=== PATIENT | female | born 1955 | race Caucasian/White ===

== ENCOUNTER 2017-09-24 19:54 | Emergency (ER) | payer OTHER ==
[2017-09-24 20:22] VITALS: BP 135/58
[2017-09-24] MEDS ORDERED: Benzonatate CAP* 100 MG PO ONE (20:32)
[2017-09-24] MEDS ORDERED: Albuterol/Ipratropium NEB.SOL* Albuterol 2.5 MG/Ipratropium 0.5 MG 3 ML INH ONE (20:32)
--- NOTE | 2017-09-24 21:01 | RAD ---
INDICATION: Cough x1 week COMPARISON: Most recent comparison chest x-rays dated February 02, 2015 TECHNIQUE: PA and lateral views of the chest were obtained. FINDINGS: The heart and mediastinum are normal in size and contour. The lungs are grossly clear. There is no evidence of large pleural effusion. Visualized bones are normal for the patient's age. There is no radiographic evidence of free air beneath the diaphragm IMPRESSION: No radiographic evidence of acute cardiopulmonary disease.
[2017-09-24] MEDS ORDERED: Albuterol HFA INHALER* 8 gm MDI INH ONE (21:03)
--- NOTE | 2017-09-24 21:03 | UC ---
Respiratory Complaint HPI - HPI Summary HPI Summary: Patient presents to the with CC of SOB, chest congestion stating as a "burning" sensation. Denies fevers or sweats, but endorses chills. Symptoms began 1 week ago and have been getting worse. She has a history of hypercholesterolemia, but denies other. at bedside. Hx of bronchitis. Denies mucous production. She is feeling ear congestion, but denies hearing loss or drainage or pain. Denies weakness. Has been taking mucinex. Otherwise healthy. Non-smoker. - History of Current Complaint Chief Complaint: UCRespiratory Stated Complaint: COUGH,SORE THROAT Time Seen by Provider: 09/24/17 20:26 Hx Obtained From: Patient ?: No Onset/Duration: Sudden Onset Timing: Constant Severity Initially: Moderate Severity Currently: Moderate Pain Intensity: 4 Pain Scale Used: 0-10 Numeric Character: Cough: Nonproductive Aggravating Factors: Deep Breaths, Recumbent Position Alleviating Factors: Upright Position Associated Signs And Symptoms: Positive: Dyspnea, URI, Nasal Congestion. Negative: Fever, Chills, Pleuritic Chest Pain, Wheezing, Hemoptysis, Dizziness, Calf Pain, Calf Swelling, Edema, Hoarseness, Sinus Discomfort - Risk Factors Pulmonary Embolism Risk Factors: Negative Cardiac Risk Factors: Negative Pseudomonas Risk Factors: Chronic Lung Disease - Allergies/Home Medications Allergies/Adverse Reactions: Allergies Allergy/AdvReac Type Severity Reaction Status Date / Time Propoxyphene [From Darvon] Allergy Rash Verified 09/24/17 20:22 Home Medications: Home Medications Fiber [Advanced Fiber Complex/AC] 1 cap PO DAILY 09/24/17 [History Confirmed ] Multiple Vitamins W/ Minerals [Multivitamin Adults] 1 tab PO DAILY 09/24/17 [ History Confirmed 09/24/17] PMH/Surg Hx/FS Hx/Imm Hx Previously Healthy: Yes - Surgical History Surgical History: Yes Surgery Procedure, Year, and Place: hysterectomy,. thumb-Rt - (TIP STITCHED BACK [id number]). TUBAL LIGATION - Social History Occupation: Employed Full-time Lives: With Family Alcohol Use: Rare Substance Use Type: None Smoking Status (MU): Never Smoked Tobacco Review of Systems Constitutional: Negative Respiratory: Negative Cardiovascular: Negative Motor: Negative Neurovascular: Negative Neurological: Negative Psychological: Negative Is Patient Immunocompromised?: No All Other Systems Reviewed And Are Negative: Yes Physical Exam Triage Information Reviewed: Yes Appearance: Well-Appearing, No Pain Distress, Well-Nourished Vital Signs: Initial Vital Signs Temp 97.2 F 09/24/17 20:17 Pulse 112 09/24/17 20:17 Resp 18 09/24/17 20:17 BP 135/58 09/24/17 20:17 Pulse Ox 96 09/24/17 20:17 Vital Signs Reviewed: Yes Eye Exam: Normal Neck exam: Normal Neck: Positive: Supple, No Lymphadenopathy Respiratory Exam: Normal Respiratory: Positive: Chest non-tender, Lungs clear. Negative: Respiratory distress, Decreased breath sounds, Stridor, Wheezing, Plerual rub Cardiovascular Exam: Normal Cardiovascular: Positive: RRR, No Murmur, Pulses Normal Musculoskeletal Exam: Normal Musculoskeletal: Positive: Strength Intact Neurological Exam: Normal Neurological: Positive: Alert Psychological: Positive: Normal Response To Family, Age Appropriate Behavior Skin Exam: Normal UC Diagnostic Evaluation - Laboratory O2 Sat by Pulse Oximetry: 96 - Radiology Xray Interpretation: No Acute Changes - read by radiologist. Read by myself and agree with radiologist interpretation. Radiology Interpretation Completed By: Radiologist Respiratory Course/Dx - Course Course Of Treatment: During the course of treatment, xray obtained. Patient is given nebulizer treatment and feels improved. She is given an albuterol inhaler. Prednisone 50mg daily given as prescription. Tessalon and Mucinex for cough and congestion. Pulse high at arrival and returned to baseline prior to discharge. BP slightly elevated and she will follow up with PCP. She will follow up here or at PCP office in 2 weeks if no improvement or worsening symptoms. - Differential Dx/Diagnosis Differential Diagnosis/HQI/PQRI: Bronchitis, Sinusitis Provider Diagnoses: URI Discharge - Discharge Plan Condition: Stable Disposition: HOME Prescriptions: Benzonatate CAP* [Tessalon CAP*] 100 mg PO TID #21 cap guaiFENesin ER TAB [Mucinex*] 600 mg PO DAILY #10 tab.er predniSONE TAB* [Deltasone TAB*] 50 mg PO DAILY #5 tab MDD 1 Patient Education Materials: Upper Respiratory Infection (ED), Acute Cough (ED) Referrals: Racheal Kapoor MD [Primary Care Provider] - Additional Instructions: You likely have an upper respiratory infection which will be treated best with supportive care: Humidifier in the home will help. hot tea with lemon and honey will help with any drainage or sore throat. Drink plenty of fluids. Tylenol 650mg three times daily for any pain related to your symptoms. Mucinex 600mg or 1200mg once daily for congestion Prednisone 50mg once daily for 5 days Tessalon up to three times daily Albuterol inhaler - 1-2 puffs every 4 hours only as needed for shortness of breath OTC cough drops or throat drops.
[2017-09-24] MEDS ORDERED: guaiFENesin ER TAB 600 MG PO ONE (21:15)
== END 2017-09-24 21:20 | disposition home or self-care (01) ==
LOC: UCEAST 19:54
DX: J06.9 Acute upper respiratory infection, unspecified (principal); J98.4 Other disorders of lung; Z88.8 Allergy status to other drugs, medicaments and biological substances
CPT/HCPCS: 71020; 87502; 99213; A9270-GY; G0463

== ENCOUNTER → 2019-11-13 05:45 | Day surgery (SDC) | payer OTHER ==
[~2019-11-13 05:45] MED LIST: Buffered Lidocaine 1% SYRIN* 1 ML/SYRINGE INTRADERM ONE; Lactated Ringers 1000 ML Bag* 1,000 ML IV SCH; Midazolam* 1 MG/ML 5 ML VIAL (5 MG) ONE; Naloxone* 0.4 MG/ML 1 ML VIAL IV PRN; Propofol* 10 MG/ML 20 ML BTL ONE; fentaNYL* 50 MCG/ML 2 ML VIAL (100 MCG VIAL) ONE
[2019-11-13 09:36] VITALS: BP 139/69
--- NOTE | 2019-11-13 12:48 | PRO ---
CC: Rachael Kapoor MD * DATE OF PROCEDURE: 11/13/19 PROCEDURE PERFORMED: EGD with snare polypectomy x3. REFERRING PROVIDER: Racheal Kapoor MD INDICATION: Gastric polyposis. The patient has multiple ipquzx-il-lawrf gastric polyps. I have removed several of these fundic gland polyps. We tried to de-escalate to H2 lion, although she developed mecxnzmw-er-ayouum esophagitis. She was increased to omeprazole 40 mg daily at last procedure in June. This seems to control GERD symptoms fairly well. MEDICATIONS GIVEN: By Anesthesia. DESCRIPTION OF PROCEDURE: Full disclosure of risks was reviewed with the patient as detailed on the consent form. The patient was placed in the left lateral decubitus position and monitored with continuous pulse oximetry, capnography, interval blood pressure monitoring, and direct observation. A bite -block was placed between the patient's teeth. An adult gastroscope was then inserted into the patient's mouth and advanced down the esophagus, into the stomach, and into the distal duodenum. Findings and interventions are described below. FINDINGS: Esophagus was a tubular structure without rings or stricture. There was moderate esophagitis at the GE junction, which occurred at 39 cm. There was a fhxxd-xr-mslebr hiatal hernia measuring 3 cm. The scope was advanced into the stomach. The stomach was examined in the forward and retroflexed views. There were multiple rsemjybq-gd-brhbg sized gastric polyps throughout the gastric body. There was antral sparing. Scope was advanced into the duodenum to at least the third portion. Duodenal mucosa was normal in appearance. The scope was then withdrawn back into the stomach. Three large polyps were removed from the mid-gastric body using cold snare. These polyps measured 2 to 2.5 cm in size. The first polyp was cut into smaller pieces using the cold snare. These pieces were suctioned. I then decided to use a Dimas net to remove the other two resected polyps. These polyps were moved to the antrum in order to avoid inadvertently gathering other polyps in the net. As I was advancing the Dimas net down into the scope, a large peristaltic wave moved the resected polyps into the duodenum. I followed the polyps into the duodenum and attempted to suction them back in. Unfortunately, peristalsis continued to quickly move the polyps down into the jejunum. I was unable to reach the polyps to retrieve them. Scope was withdrawn from the patient. The patient tolerated the procedure well and was recovered in the GI recovery area. IMPRESSION: 1. Multiple wsebgw-sn-akukw gastric polyps, stable as compared to last EGD. Three polyps removed as above. 2. Moderate esophagitis. FOLLOWUP: 1. Increased omeprazole back to 40 mg twice daily given persistent esophagitis. 2. Await pathology. 3. This is a difficult case as I suspect the PPI is the cause of the numerous gastric polyps. Unfortunately, we have been unsuccessful in trying to minimize PPI use due to erosive esophagitis. Will refer to thoracic surgery as one potential option includes anti-reflux surgery. Another option is for surveillance endoscopies periodically given the polyposis. Thank you very much for the referral. [id number]/[facility] #: [id number] MABEL
== END | disposition home or self-care (01) ==
LOC: OR 05:45
PROVIDERS: ATTEND Internal Medicine Gastroenterology
DX: K31.7 Polyp of stomach and duodenum (principal); K21.9 Gastro-esophageal reflux disease without esophagitis; E03.9 Hypothyroidism, unspecified; E78.5 Hyperlipidemia, unspecified; F32.9 Major depressive disorder, single episode, unspecified; Z87.891 Personal history of nicotine dependence; M79.7 Fibromyalgia; Z96.659 Presence of unspecified artificial knee joint
CPT/HCPCS: 88305; J2250; J2704; J3010